=== PATIENT | female | born 1950 | race Caucasian/White ===

== ENCOUNTER 2018-05-16 06:02 | Day surgery (SDC) | payer MEDICARE, OTHER ==
[2018-05-16] MEDS ORDERED: Ketamine HCl 50 MG/ML IJ ONE (06:03)
[2018-05-16] MEDS ORDERED: DIPRIVAN 200 MG/20 ML IV ONE (06:03)
[2018-05-16] MEDS ORDERED: Lactated Ringers 1,000 ML IV ONE (06:59)
[2018-05-16 07:00] VITALS: O2SAT 97
[2018-05-16 09:03] VITALS: BP 120/72; PULSE 70
--- NOTE | 2018-05-16 09:04 | OP ---
SURGERY DATE/TIME: 05/16/2018 0750 PREOPERATIVE DIAGNOSIS: Rectal bleeding. POSTOPERATIVE DIAGNOSES: 1) Sigmoid colon polyps. 2) Mild internal hemorrhoids. PROCEDURE: Colonoscopy. SURGEON: Abdirahman Trivedi M.D. ANESTHESIA: MAC by Keagan Willoughby CRNA. ESTIMATED BLOOD LOSS: Minimal. SPECIMENS: Hot forceps polypectomy of sigmoid colon polyp. DESCRIPTION OF PROCEDURE: After informed written consent was obtained, the patient was taken to the endoscopy suite. She underwent monitored anesthesia and digital rectal exam showed normal sphincter tone. The scope was inserted into the rectum and sequentially the entire colonic mucosa was traversed. The level of cecum was reached and verified with direct visualization of ileocecal valve. Upon withdrawal careful mucosal inspection revealed no abnormalities until the level of the sigmoid colon is reached. There is a small sessile polyp which is removed in its entirety with hot forceps. The area was hemostatic with complete removal of the lesion. Upon withdrawal no other lesions were encountered. Retroflexion revealed some mild internal hemorrhoids. No bleeding present. The scope was removed and the patient was transferred to the recovery room in good condition. She will follow up in the office for pathology results in a week.
== END 2018-05-16 09:10 | disposition home or self-care (01) ==
LOC: SDC 06:02
PROVIDERS: ATTEND Family Medicine
DX: D12.5 Benign neoplasm of sigmoid colon (principal); K64.8 Other hemorrhoids; K62.5 Hemorrhage of anus and rectum
CPT/HCPCS: J2704